=== PATIENT | female | born 1965 | race Caucasian/White ===

== ENCOUNTER → 2016-05-06 | Outpatient (CLI) | payer BC | LOC: BRMIMAGING 09:47 | PROVIDERS: ATTEND Internal Medicine | DX: M85.841 Other specified disorders of bone density and structure, right hand (principal); M85.842 Other specified disorders of bone density and structure, left hand; M53.3 Sacrococcygeal disorders, not elsewhere classified; I87.8 Other specified disorders of veins | CPT/HCPCS: 73130-PO; 73521-PO ==